=== PATIENT | male | born 1990 | race American Indian/Alaskan Native ===

== ENCOUNTER 2017-07-23 11:14 | Emergency (ER) | payer OTHER ==
[2017-07-23 11:22] VITALS: BP 107/68
--- NOTE | 2017-07-23 13:52 | Emergency Department Report ---
Minor Respiratory - HPI Chief Complaint: Upper Respiratory Infection Stated Complaint: NOSE BLEED/SINUS PRESSURE Time Seen by Provider: 07/23/17 13:05 Duration: 2 Days Pain Location: Nose (congestion) Severity: mild Minor Respiratory: Yes Rhinorrhea, Yes Able to Tolerate Fluids, No Sore Throat, No Ear Pain, No Cough, No Sick Contacts, No Hemoptysis, No Chest Pain, No Shortness of Breath, No Fever Other History: This is a 26-year-old male that presents with sinus pressure and headache for 2 days. Patient reports waking up with a nosebleed around 3 AM. He decided to increase water intake and he'll pressure over bridge of nose which stopped nosebleed. Patient reports increase rhinorrhea after returning from outside. He is feeling pressure over the frontal area when he leans forward. He decided to follow up here because he usually takes Benadryl for headaches but can't take it right now because he is working overnight. Denies fever, shortness of breath, chest pain, and cough. ED Review of Systems ROS: Stated complaint: NOSE BLEED/SINUS PRESSURE Other details as noted in HPI Constitutional: denies: chills, fever ENT: congestion. denies: ear pain, throat pain Respiratory: denies: cough, shortness of breath, wheezing Cardiovascular: denies: chest pain, palpitations, edema, syncope Gastrointestinal: denies: abdominal pain, nausea, vomiting, diarrhea Neurological: headache. denies: weakness, numbness, paresthesias Psychiatric: denies: anxiety, depression ED Past Medical Hx - Past Medical History Previous Medical History?: No - Surgical History Past Surgical History?: No - Social History Smoking Status: Current Every Day Smoker Substance Use Type: None - Medications Home Medications: Home Medications Medication Instructions Recorded Confirmed Last Taken Type Amoxicillin/Potassium Clav 1 each PO BID 5 Days #10 tablet 07/23/17 Unknown Rx [Augmentin 875-125 Tablet] Fluticasone [Flonase] 1 spray NS QDAY #1 bottle 07/23/17 Unknown Rx Minor Respiratory Exam - Exam General: Vital signs noted. No distress. Alert and acting appropriately. HEENT: Yes Moist Mucous Membranes, Yes Rhinorrhea (turbinates congestion with clear discharge), Yes Maxillary Tenderness, No Pharyngeal Erythema, No Pharyngeal Exudates, No Conjuctival Injection, No Frontal Tenderness Ear: Neither TM Bulge, Neither TM Erythema, Neither EAC Pain, Neither EAC Discharge Neck: Yes Supple, No Adenopathy Lungs: Yes Good Air Exchange, No Wheezes, No Ronchi, No Stridor, No Cough, No Labored Respirations, No Retractions, No Use of Accessory Muscles, No Other Abnormal Lung Sounds Heart: Yes Regular, No Murmur Abdomen: Yes Normal Bowel Sounds, No Tenderness, No Peritoneal Signs Skin: No Rash, No Edema Neurologic: Alert and oriented, no deficits. Musculoskeletal: Unremarkable. ED Course Vital Signs 07/23/17 11:19 Temperature 98.5 F Pulse Rate 67 Respiratory 16 Rate Blood Pressure 107/68 O2 Sat by Pulse 100 Oximetry ED Medical Decision Making - Medical Decision Making 26 y.o. male that presents with headache and sinus pressure x 2 days. Patient examined by me and stable. No distress noted. Vitals stable. Given ibuprofen 800 mg po once in ER for headache. Start flonase, augmentin for sinusitis. Discharged home. Follow up with PCP in 2-3 days. Critical care attestation.: If time is entered above; I have spent that time in minutes in the direct care of this critically ill patient, excluding procedure time. ED Disposition Clinical Impression: Sinusitis Qualifiers: Sinusitis location: maxillary Chronicity: acute Recurrence: non-recurrent Qualified Code(s): J01.00 - Acute maxillary sinusitis, unspecified Disposition: TO HOME OR SELFCARE Is pt being admited?: No Does the pt Need Aspirin: No Condition: Stable Instructions: Sinusitis (ED) Additional Instructions: Increase fluid intake. Wash hands frequently. Follow up with Primary Care Provider if symptoms don't resolve. Return to ER if fever, SOB, wheezing, and Nausea or Vomiting. Prescriptions: Amoxicillin/Potassium Clav [Augmentin 875-125 Tablet] 1 each PO BID 5 Days #10 tablet Fluticasone [Flonase] 1 spray NS QDAY #1 bottle Referrals: [facility] [place] [Outside] - 3-5 Days [facility] [Outside] - 3-5 Days [facility] [Outside] - 3-5 Days Forms: Work/School Release Form(ED) Time of Disposition: 14:07 Print Language: SYRIAC
[2017-07-23] MEDS ORDERED: MOTRIN PO ONE (14:09)
== END 2017-07-23 14:34 | disposition home or self-care (01) ==
LOC: ED 11:14
DX: J01.90 Acute sinusitis, unspecified (principal); F17.200 Nicotine dependence, unspecified, uncomplicated
CPT/HCPCS: 99282

== ENCOUNTER 2020-01-25 13:18 | Emergency (ER) | payer SELFPAY ==
[2020-01-25 13:26] VITALS: BP 120/67
--- NOTE | 2020-01-25 14:01 | XRay Report ---
RIGHT ANKLE 3 VIEWS INDICATION / CLINICAL INFORMATION: Pain over the calcaneus/distal tibia after injury. COMPARISON: None available. FINDINGS: No significant skeletal abnormality Signer Name: Nik Birmingham MD FACR Signed: 01/25/2020 2:00 PM Workstation Name: [id number]
--- NOTE | 2020-01-25 14:07 | Emergency Department Report ---
HPI - General Chief Complaint: Extremity Injury, Lower Time Seen by Provider: 01/25/20 13:22 - HPI HPI: - General Chief complaint: Extremity Injury, Lower Stated complaint: ANKLE INJURY Time Seen by Provider: 01/25/20 13:01 Source: patient Mode of arrival: Ambulatory Limitations: No Limitations - History of Present Illness Initial comments: 29-year-old -[place] male patient presents with complaints of right ankle pain after a trip and fall injury today while at work. He rates his pain as a 8/10 in severity and states it worsens with flexion of the foot. He denies any numbness/tingling/weakness in his foot or swelling. -: Sudden - Related Data Previous Rx's Medication Instructions Recorded Last Taken Type Nitrofurantoin [place]/M-Cryst 100 mg PO Q12HR #20 capsule 10/19/19 Unknown Rx [Macrobid CAP] Phenazopyridine [Pyridium] 200 mg PO TID #9 tab 10/19/19 Unknown Rx Allergies Allergy/AdvReac Type Severity Reaction Status Date / Time No Known Allergies Allergy Verified 01/25/20 12:59 ED Review of Systems ROS: Stated complaint: ANKLE INJURY Other details as noted in HPI Constitutional: denies: malaise Musculoskeletal: arthralgia. denies: joint swelling Skin: denies: change in color Neurological: denies: numbness, paresthesias, abnormal gait ED Past Medical Hx - Past Medical History Previous Medical History?: No - Surgical History Past Surgical History?: No - Social History Smoking Status: Current Every Day Smoker Substance Use Type: Alcohol, Marijuana - Medications Home Medications: Home Medications Medication Instructions Recorded Confirmed Last Taken Type Nitrofurantoin [place]/M-Cryst 100 mg PO Q12HR #20 capsule 10/19/19 Unknown Rx [Macrobid CAP] Phenazopyridine [Pyridium] 200 mg PO TID #9 tab 10/19/19 Unknown Rx ED Physical Exam - General Limitations: No Limitations General appearance: alert, in no apparent distress - Head Head exam: Present: atraumatic, normocephalic - Eye Eye exam: Absent: scleral icterus - Respiratory Respiratory exam: Absent: respiratory distress - Cardiovascular Cardiovascular Exam: Present: regular rate - Extremities Exam Extremities exam: Present: full ROM, other (Tenderness to palpation noted over the right calcaneus and distal tibia without obvious swelling or bruising noted; normal pedal pulses noted along with normal sensation) - Back Exam Back exam: Present: normal inspection - Neurological Exam Neurological exam: Present: alert, oriented X3 ED Course Vital Signs 01/25/20 12:59 Temperature 97.5 F L Pulse Rate 80 Respiratory 18 Rate Blood Pressure 120/67 O2 Sat by Pulse 100 Oximetry ED Medical Decision Making - Radiology Data Radiology results: report reviewed RIGHT ANKLE 3 VIEWS INDICATION / CLINICAL INFORMATION: Pain over the calcaneus/distal tibia after injury. COMPARISON: None available. FINDINGS: No significant skeletal abnormality - Medical Decision Making 29-year-old -[place] male patient presents with complaints of right ankle pain after a trip and fall injury today while at work. He rates his pain as a 8/10 in severity and states it worsens with flexion of the foot. He denies any numbness/tingling/weakness in his foot or swelling. X-ray is negative for any acute bony abnormality. Patient placed in Maykel wrap and instructed on rice and NSAID method of treatment. Recommend follow-up with orthopedics as needed. Strict return precautions were discussed in detail with patient who verbalizes understanding peer Critical care attestation.: If time is entered above; I have spent that time in minutes in the direct care of this critically ill patient, excluding procedure time. ED Past Medical Hx - Past Medical History Previous Medical History?: No - Surgical History Past Surgical History?: No - Social History Smoking Status: Current Every Day Smoker Substance Use Type: Alcohol - Medications Home Medications: Home Medications Medication Instructions Recorded Confirmed Last Taken Type Amoxicillin/Potassium Clav 1 each PO BID 5 Days #10 tablet 07/23/17 Unknown Rx [Augmentin 875-125 Tablet] Fluticasone [Flonase] 1 spray NS QDAY #1 bottle 07/23/17 Unknown Rx Ibuprofen [Motrin 800 MG tab] 800 mg PO Q8HR PRN #20 tablet 01/25/20 Unknown Rx ED Review of Systems ROS: Stated complaint: ANKLE INJURY Other details as noted in HPI Physical Exam - Physical Exam Vital Signs: Vital Signs 01/25/20 13:24 Temperature 97.5 F L Pulse Rate 80 Respiratory 18 Rate Blood Pressure 120/67 O2 Sat by Pulse 100 Oximetry ED Course Vital Signs 01/25/20 13:24 Temperature 97.5 F L Pulse Rate 80 Respiratory 18 Rate Blood Pressure 120/67 O2 Sat by Pulse 100 Oximetry Critical care attestation.: If time is entered above; I have spent that time in minutes in the direct care of this critically ill patient, excluding procedure time. ED Disposition Clinical Impression: Right ankle sprain Qualifiers: Encounter type: initial encounter Involved ligament of ankle: calcaneofibular ligament Qualified Code(s): S93.411A - Sprain of calcaneofibular ligament of right ankle, initial encounter Disposition: TO HOME OR SELFCARE Is pt being admited?: No Condition: Stable Instructions: Ankle Sprain Prescriptions: Ibuprofen [Motrin 800 MG tab] 800 mg PO Q8HR PRN #20 tablet PRN Reason: pain Referrals: TESHA FALL MD [Staff Physician] - 3-5 Days Forms: Work/School Release Form(ED)
== END 2020-01-25 14:42 | disposition home or self-care (01) ==
LOC: ED 13:18
DX: S93.401A Sprain of unspecified ligament of right ankle, initial encounter (principal); F17.200 Nicotine dependence, unspecified, uncomplicated; Z79.899 Other long term (current) drug therapy; W19.XXXA Unspecified fall, initial encounter; Y93.89 Activity, other specified; Y92.89 Other specified places as the place of occurrence of the external cause; Y99.0 Civilian activity done for income or pay
CPT/HCPCS: 99283

== ENCOUNTER 2020-02-23 10:57 | Emergency (ER) | payer SELFPAY ==
[2020-02-23 11:06] VITALS: BP 118/53
--- NOTE | 2020-02-23 11:09 | Emergency Department Report ---
[facility] Chief Complaint: Eye Problems Stated Complaint: PINK EYE Time Seen by Provider: 02/23/20 11:05 Duration: 3 Days Side: Bilateral Severity: mild Symptoms: Yes Eye Itching, Yes Eye Redness, No Eye Pain, No Mucous Drainage, No Purulent Drainage, No Blurred Vision, No Preceding URI, No H/O Allergic Rhinitis, No Contact Lens Use, No Trauma, No Fever, No Headache Other History: This is a 29-year-old male nontoxic well in appearance with no signs of distress presents to the ED with bilateral eye crusting and itching with redness. Patient denies any eye pain or foreign body sensation. Patient denies any other symptoms. Denies any blurry vision or visual changes. Denies any fever, chills, headache, nausea, vomiting, chest pain or SOB. Denies any other complaints. Denies any allergies. ED Review of Systems ROS: Stated complaint: PINK EYE Other details as noted in HPI Constitutional: denies: chills, fever Eyes: eye discharge. denies: eye pain, vision change ENT: denies: ear pain, throat pain Respiratory: denies: cough, shortness of breath, wheezing Cardiovascular: denies: chest pain, palpitations Endocrine: no symptoms reported Gastrointestinal: denies: abdominal pain, nausea, diarrhea Genitourinary: denies: urgency, dysuria Musculoskeletal: denies: back pain, joint swelling, arthralgia Skin: denies: rash, lesions Neurological: denies: headache, weakness, paresthesias Psychiatric: denies: anxiety, depression Hematological/Lymphatic: denies: easy bleeding, easy bruising ED Past Medical Hx - Past Medical History Previous Medical History?: No - Surgical History Past Surgical History?: No - Social History Smoking Status: Current Every Day Smoker Substance Use Type: Alcohol - Medications Home Medications: Home Medications Medication Instructions Recorded Confirmed Last Taken Type Amoxicillin/Potassium Clav 1 each PO BID 5 Days #10 tablet 07/23/17 Unknown Rx [Augmentin 875-125 Tablet] Fluticasone [Flonase] 1 spray NS QDAY #1 bottle 07/23/17 Unknown Rx Ibuprofen [Motrin 800 MG tab] 800 mg PO Q8HR PRN #20 tablet 01/25/20 Unknown Rx Polymyxin B Sulf/Trimethoprim 2 drops OU BID #1 drops 02/23/20 Unknown Rx [Polytrim Eye Drops] [facility] Exam - Exam General: Vital signs noted. No distress. Alert and acting appropriately. Eye Exam: Both Purulent Discharge, Neither Injection, Neither Abnormal Pupil, Neither EOMI, Neither Lid Foreign Body, Neither Corneal Edema, Neither Photophobia HEENT: No Nasal Congestion, No Pharyngeal Erythema Remainder of HEENT: Normal Lungs: Yes Clear Lung Sounds, Yes Good Air Exchange, No Wheezes, No Stridor, No Cough, No Nasal Flaring, No Retractions, No Use of Accessory Muscles ED Course Vital Signs 02/23/20 11:06 Temperature 98.7 F Pulse Rate 71 Respiratory 22 Rate Blood Pressure 118/53 O2 Sat by Pulse 99 Oximetry - Reevaluation(s) Reevaluation #1: 02/23/20 11:07 Patient is speaking in full sentences with no signs of distress noted. ED Medical Decision Making - Medical Decision Making Patient was instructed to Follow-up with a primary care doctor in 3-5 days or if symptoms worsen and continue return to emergency room as soon as possible. At time of discharge, the patient does not seem toxic or ill in appearance. No acute signs of distress noted. Patient agrees to discharge treatment plan of care. No further questions noted by the patient. Critical care attestation.: If time is entered above; I have spent that time in minutes in the direct care of this critically ill patient, excluding procedure time. ED Disposition Clinical Impression: Bilateral conjunctivitis Qualifiers: Conjunctivitis type: acute Acute conjunctivitis type: bacterial Qualified Code(s): H10.33 - Unspecified acute conjunctivitis, bilateral Disposition: DC-01 TO HOME OR SELFCARE Is pt being admited?: No Does the pt Need Aspirin: No Condition: Stable Instructions: How to Use Eye Drops and Eye Ointments, Bacterial Conjunctivitis, Adult, [id number] Additional Instructions: Follow-up with a immigration case worker doctor in 3-5 days or if symptoms worsen and continue return to emergency room as soon as possible. Prescriptions: Polymyxin B Sulf/Trimethoprim [Polytrim Eye Drops] 2 drops OU BID #1 drops Referrals: PRIMARY CARE, [Referring] - 3-5 Days MEEK OCSTA MD [Staff Physician] - 3-5 Days Forms: Work/School Release Form(ED)
== END 2020-02-23 11:15 | disposition home or self-care (01) ==
LOC: ED 10:57
DX: H10.33 Unspecified acute conjunctivitis, bilateral (principal); F17.200 Nicotine dependence, unspecified, uncomplicated; Z79.899 Other long term (current) drug therapy
CPT/HCPCS: 99281

== ENCOUNTER 2021-02-15 23:03 | Emergency (ER) | payer SELFPAY ==
[2021-02-15 23:07] VITALS: BP 114/65
== END 2021-02-16 02:40 ==
LOC: ED 23:03
DX: J06.9 Acute upper respiratory infection, unspecified (principal); Z53.21 Procedure and treatment not carried out due to patient leaving prior to being seen by health care provider